=== PATIENT | female | born 1930 | race Caucasian/White ===

== ENCOUNTER 2016-10-04 13:16 | Observation (INO) | payer MEDICARE ==
[~2016-10-04] VITALS: Ht 162.6 cm; Wt 37.0 kg
--- NOTE | ~2016-10-04 | CON ---
PATIENT'S NAME: ADA VIZCARRA [facility] AGE: 86 Y [address] ROOM: [place] [address] LOCATION: GICU ADMIT DATE: 10/04/2016 Consultation DISCHARGE DATE: FAMILY PHYSICIAN: Elan Cunningham MD ATTENDING PHYSICIAN: Mars BEASLEY This is Consult for Dr. Pearce. HISTORY OF PRESENT ILLNESS: This pleasant 86-year-old lady is referred for rehab evaluation, admitted on 10/04/2016 with symptoms of potential of possible TIA. She was noticed to have weakness, and she complained of weakness throughout. EMS noticed while transferring her with some left facial droop that reportedly resolved while she was in the emergency room. Initial CT scan showed to be grossly within normal limits, unremarkable. MRI repeat on 10/04/2016 grossly is within normal limits. She stated that while she was in the emergency room, she still felt a little bit of weakness but that has resolved too. 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 She did well and went home. She has history of hypertension fluctuating with high systolic blood pressure at times. SOCIAL HISTORY: Known to be a regular smoker. She smokes about 3/4 to 1 pack a day, and she drinks fairly regularly mildly, however. PAST SURGICAL HISTORY: She did have history of hysterectomy and breast biopsy. PHYSICAL EXAMINATION: GENERAL: She is alert now, oriented x3. VITAL SIGNS: Blood pressure 145/66, temperature 97.4, pulse 56, respirations 16. She is 5 feet 4 inches and weighs 56.3 kg. NEUROLOGIC: Cranial nerves 2 through 12 are within normal limits. Tongue is moving symmetrical with soft palate. Voice is clear and not wet. No visual cut and/or neglect. Denied any headaches. No nausea. No vomiting. Denied any shortness of breath. PATIENT'S NAME: ADA VIZCARRA [facility] AGE: 86 Y [address] ROOM: [id number] [place] [id number] LOCATION: GICU ADMIT DATE: 10/04/2016 Consultation DISCHARGE DATE: FAMILY PHYSICIAN: Elan Cunningham MD ATTENDING PHYSICIAN: Mars BEASLEY MEDICATIONS: She is on the following medications: 1. Protonix. 2. Aspirin. 3. Nicotine. 4. Namenda. 5. Catapres. 6. Apresoline. 7. Artificial tear. 8. NaCl 0.9%. 9. Tylenol. 10. Plavix. 11. Lipitor. 12. Protonix. ASSESSMENT AND PLAN: Her strength throughout is now about 4- to 4/5 with normal breaths where she is usually as per her statement. She has okay control over her bowel and bladder. I feel that she has done well. If she continues to do so, I feel that she can follow with her family physician. She will continue on PT, OT, which has been already initiated. I would advise that she should not drive until she is re-evaluated. I will follow alongside with you while she is here. Thank you for this referral. All the above was explained to her and her in detail and their questions were answered appropriately. They verbalized understanding and in agreement. ELAN ABEBE MD WMAurora/modl /[id number] d: 10/05/162123 t: 10/06/16 07, CONSULTATION REPORT
--- NOTE | ~2016-10-04 | ER ---
PATIENT'S NAME: ADA VIZCARRA [facility] AGE: 86 Y [address] ROOM: [place] [address] LOCATION: [facility] ADMIT DATE: 10/04/2016 ER/Outpatient Report DISCHARGE DATE: FAMILY PHYSICIAN: Elan Cunningham MD ATTENDING PHYSICIAN: Mars BEASLEY Time of Arrival: 1320 hours. Time of Exam: 1320 hours. CHIEF COMPLAINT: Aphasia. HISTORY OF PRESENT ILLNESS: The patient arrived per [facility] ambulance, who had met up with the [facility]. At approximately 12 or 12:30 today, the patient had been working in the kitchen, she came out of the kitchen and was trying to talk to her and her speech was garbled and he was unable to understand what she was saying. She has had problems like this before. warehouse technician felt as though she had some drooping of the left side of her face. Upon arrival to the ER, the patient is awake and alert and oriented x4, able to state her name, her birthday, and knows date and location. She denies having any chest pain. Denies feeling any shortness of breath. States she has just some generalized weakness feeling, but otherwise does not really remember a lot about what happened prior to the ambulance picking her up. ALLERGIES: PENICILLIN. CURRENT MEDICATIONS: On her chart and reviewed by me. PAST MEDICAL HISTORY: COPD, CVA, TIA, mild dementia, osteoporosis. In May 2015, she did have a fall that caused a subdural hematoma and subarachnoid hemorrhage. PAST SURGERIES: Hysterectomy, breast lumpectomy, and eye surgery. SOCIAL HISTORY: She smokes 1 pack per day and has for quite a few years. She does drink alcohol on a nightly basis. Denies use of drugs. REVIEW OF SYSTEMS: Negative other than those mentioned in the HPI. PATIENT'S NAME: ADA VIZCARRA [facility] AGE: 86 Y [address] ROOM: [place] [address] LOCATION: [facility] ADMIT DATE: 10/04/2016 ER/Outpatient Report DISCHARGE DATE: FAMILY PHYSICIAN: Elan Cunningham MD ATTENDING PHYSICIAN: Mars BEASLEY PHYSICAL EXAMINATION: VITAL SIGNS: She weighed 35 kg. Blood pressure is 174/74, pulse of 52, respirations 20, temperature of 97 tympanic, and O2 saturation was 99% on room air. GENERAL: She is awake, alert, and oriented x4. SKIN: [place], warm, and dry. RESPIRATIONS: Even and nonlabored. HEENT: Pupils are equal and reactive to light. Extraocular movement is intact. Negative nystagmus. Oropharynx is clear. Tongue protrudes out equally. No drooping of her face is noted with smiling. NECK: Supple. No lymphadenopathy. LUNGS: Lung sounds are clear throughout. HEART: Regular rate and rhythm. ABDOMEN: Soft and nondistended. Bowel sounds are present. She moves all extremities equally. She has good sensation to all of her extremities. Strong peripheral pulses. No peripheral edema noted. EMERGENCY ROOM COURSE: EKG was completed, it shows sinus manuel and sinus rhythm, it is unchanged from her previous EKGs. CBC is within normal limits. Chem panel is within normal limits. Lactate was 1.2. Procalcitonin was negative. Troponin is negative. CT of the head was completed. Radiologist states that it shows old infarct and atrophy, but no acute abnormalities. The patient continues to deny having any pain or discomfort. She does report that she was seen last Sunday at [facility] ER for some vision problems and hypertension, states those symptoms did improve. I did call and talk to the hospitalist regarding the patient. He did come and evaluate the patient. IMPRESSION: 1. Transient ischemic attack. 2. History of aphasia. PLAN: The patient will be placed in observation on Neuro Trauma Unit for care of the hospitalist. She and her family verbalized understanding. DION SIMON APRN FOR DO [place]/chely /[id number] d: 10/04/162151 t: 10/13/16 1120, OUTPATIENT REPORT
--- NOTE | ~2016-10-04 | CON ---
PATIENT'S NAME: ADA VIZCARRA [facility] AGE: 86 Y [address] ROOM: [place] [address] LOCATION: GICU ADMIT DATE: 10/04/2016 Consultation DISCHARGE DATE: FAMILY PHYSICIAN: Elan Cunningham MD ATTENDING PHYSICIAN: Mars BEASLEY DATE OF CONSULTATION: 10/05/2016 TIME OF SERVICE: 6:15 p.m. CHIEF COMPLAINT: CVA. HISTORY OF PRESENT ILLNESS: This is an 86-year-old delightful female with a past medical history of hypertension, history of CVA, and history of subdural and subarachnoid hemorrhages secondary to a fall. She presents today with TIA-like symptoms. The symptoms began around noon today. She was having difficulty speaking and finding words. Her thought she had a left facial droop. He also felt the patient was weak throughout. EMS was called for CVA evaluation. En route, the EMS personnel also noted left facial droop. Upon arrival to the emergency department, the patient's symptoms resolved. Initial CT head was unremarkable. The patient was not a tPA candidate because her NIH stroke scale at that time was low. She denied any chest pain, shortness of breath, abdominal pain, nausea, vomiting, fever, chills, or vision change with this episode. She did not have a headache. Of note, the patient was seen in the [facility] on Sunday for elevated blood pressure and was started on clonidine. PAST MEDICAL HISTORY: 1. History of CVA. 2. Multiple TIAs. 3. Subarachnoid hemorrhage and small subdural hematoma, secondary to a fall last year. 4. Hypertension. 5. Mild dementia. 6. Tobacco abuse. PAST SURGICAL HISTORY: Hysterectomy and breast biopsy. FAMILY HISTORY: Her father had a history of coronary artery disease and her mother had a stroke. Her identical twin sister does have Parkinson disease. PATIENT'S NAME: ADA VIZCARRA [facility] AGE: 86 Y [address] ROOM: [place] [address] LOCATION: GICU ADMIT DATE: 10/04/2016 Consultation DISCHARGE DATE: FAMILY PHYSICIAN: Elan Cunningham MD ATTENDING PHYSICIAN: Mars BEASLEY SOCIAL HISTORY: The patient lives with her . They have been together for 7 years. She has a 36-year pack-a-year smoking history and currently smokes. She also has 1 beer a day and denies any history of withdrawal or dependence. MEDICATIONS: Her medications are on the chart and were reviewed by me. Of note, she is on Plavix 75 mg. REVIEW OF SYSTEMS: All systems have been reviewed and are negative, except for what is mentioned in the HPI. PHYSICAL EXAMINATION: VITAL SIGNS: She is afebrile, her blood pressure is 142/64, heart rate of 54, respiratory rate of 16, and saturating 96% on room air. GENERAL APPEARANCE: The patient is cachectic. She is in no acute distress. HEENT: Normocephalic and atraumatic. Eyes: Extraocular muscles are intact. HEART: Regular rate and rhythm. No murmurs, rubs, or gallops. LUNGS: Clear to auscultation bilaterally. NEUROLOGIC: She is alert and oriented x2. At this time, the patient's stroke scale is zero. Her pupils are equal and reactive to light. Strength is probably 4+ to upper and lower extremities. The patient was not observed to walk, however, she states she has no gait abnormalities. She is conversive and pleasant. She seems to know current events. There is a mention of dementia in the chart; however, I am unable to elicit any of these symptoms. DIAGNOSTICS: The patient has had an MRI of the brain. It does show a very small left frontal periventricular white matter acute ischemic infarct. There are chronic bilateral basal ganglia and thalamic lacunar infarcts. The brain does have advanced atrophy with compensatory ventriculomegaly. There are advanced white matter changes more than typical for age, probably from chronic small vessel ischemia. She does have chronic microhemorrhages in the left cerebellum and bilateral thalamic and right frontal subcortex. MRI of the brain is done as well which shows no focal vessel cut-off, aneurysm, stenosis, or vascular malformation. Pending studies include a carotid study of her neck. An echocardiogram was completed, which does show a left ventricular ejection fraction of 70%-75%. There is some mild sclerosis around the aortic valve. The atrium of the right and left are both within normal limits. Her LDL is 82. ASSESSMENT AND PLAN: 1. Cerebrovascular accident. This stroke looks very much to be caused by her PATIENT'S NAME: CARMITAADA [facility] AGE: 86 Y [address] ROOM: [id number] [place], [place] [address] LOCATION: [facility] ADMIT DATE: 10/04/2016 Consultation DISCHARGE DATE: FAMILY PHYSICIAN: Elan Cunningham MD ATTENDING PHYSICIAN: Mars BEASLEY history of smoking. We did discuss quitting smoking. She would like to discuss this with Dr. Payne, her new physician. She has tried some things in the past. I did explain to her that this certainly is not good for someone with the stroke and increases her risk of a secondary stroke. She is on Plavix normally. We will add aspirin to that regime and have dual- platelet therapy for 21 days and then return to the Plavix. Her LDL is being treated with statin therapy. Luckily, the patient's NIH stroke scale is zero at this time. 2. Ventriculomegaly. The patient definitely demonstrates ventriculomegaly on her MRI. It is difficult to know if this is in proportion to her atrophy of her brain. She denies any gait disturbances at this time, however, she may want to consider followup in an outpatient setting to evaluate for normal-pressure hydrocephalus. It is difficult to evaluate this in the inpatient setting. 3. Physical deconditioning. The patient has been ordered on a high-calorie diet with supplementation. We would like to thank you for the opportunity to take part in this patient's care. If you have any questions, please let myself or Dr. Dewey know. KRYSTLE CHU APRN FOR MEG DEWEY MD PP/modl /[id number] d: 10/05/162256 t: 10/24/16 163, CONSULTATION REPORT
--- NOTE | ~2016-10-04 | ENPV ---
Carotid Duplex Study Demographics Patient Name ADA VIZCARRA Date of Study 10/05/2016 Patient Number [id number] Gender Female Date of 1930 Age 86 Visit Number [id number] Height 64 Accession Number [id number] Weight 78 Referring Emili March MD Physician EMILI CREWS Physician Physician Ordering Physician Emili Crews Team Facilitator Irish Moss Gatherer Dipti Nielsen, RT,RVT,RDCS Conclusions Procedure Type of Study: Cerebral:Carotid, Carotid Doppler Bilateral. Indications for Study:TIA. Appropriate Use Criteria:9 Patient Status:Routine. Study Location:Inpatient Portable. Technical Quality:Adequate visualization. Velocities are measured in cm/s ; Diameters are measured in cm Carotid Right Measurements Carotid Left Measurements + +--------+--------+ + + + +--------+- -------+ + + !Location !PSV !EDV !Angle !%Stenosis ! !Location !PSV !E DV !Angle !%Stenosis ! + +--------+--------+ + + + +--------+- -------+ + + !Prox CCA !31 !6 !40 !1-39% ! !Prox CCA !63 !6 !60 !1-39% ! + +--------+--------+ + + + +--------+- -------+ + + !Mid CCA !37 !7 !52 ! ! !Dist CCA !52 !8 !60 !1-39% ! + +--------+--------+ + + + +--------+- -------+ + + !Dist CCA !28 !5 !46 !1-39% ! !Prox ICA !44 !8 !58 !1-39% ! + +--------+--------+ + + + +--------+- -------+ + + !Prox ICA !90 !21 !60 !1-39% ! !Mid ICA !35 !8 !40 !1-39% ! + +--------+--------+ + + + +--------+- -------+ + + !Mid ICA !104 !15 !60 !1-39% ! !Dist ICA !49 !1 0 !20 !1-39% ! + +--------+--------+ + + + +--------+- -------+ + + !Dist ICA !106 !10 !52 !1-39% ! !Prox ECA !71 !6 2 !46 ! ! + +--------+--------+ + + + +--------+- -------+ + + !Prox ECA !157 ! !52 ! ! !Vertebral !65 ! !52 ! ! + +--------+--------+ + + + +--------+- -------+ + + !Vertebral !29 ! !40 ! ! + +--------+--------+ + + - There is antegrade vertebral flow noted on the right side. - There is antegrade verte bral flow noted on the left side. - Add'l Measurements:Subclavian PRV 83 cm/sICAPSV/CCAPSV - Add'l Measurements:Subcl jere PRV 61 cm/sICAPSV/CCAPSV 3.44.ICAEDV/CCAEDV 3.59. 0.77.ICAEDV/CCAEDV 1.56. Impressions Right Impression Right vertebral antegrade flow. Mild to Moderate calcified plaque at bifurcation and proximal to mid ICA. No significant elevation of velocities, however, velocity was low in right CCA. Left Impression Left vertebral antegrade flow. Mild to moderate calcified plaque in proximal ICA. No significant elevation in velocities. Signature dtt: BRI CARRANZA dtd: 10/05/16 1115 Physician Self Edit
--- NOTE | ~2016-10-04 | ECHO ---
Transthoracic Echocardiography Report (TTE) Demographics Patient Name ADA VIZCARRA Date of Study 10/05/2016 Patient Number [id number] Visit Number [id number] Date of 1930 Room Number [id number] Gender Female Number Age 86 year(s) Referring Emili Crews Medical Billing Coder Dipti Nielsen, Physician EMILI CREWS RT,RVT,RDCS Physician Interpreting Velasquez Dawson A Saw Superintendent Physician MD Supervising Ordering Emili Crews MD/MLP Physician Nurse Stress Client Relationship Manager Conclusions Contractility Score Summary Normal Left Ventricular contractility was noted. Summary The estimated left ventricular ejection fraction is 70-75%. The aortic valve is mildly sclerotic. Mild tricuspid regurgitation by color Doppler. Procedure Type of Study TTE procedure:2D Echocardiogram, M-Mode, Doppler , Color Doppler. Procedure Date Date: 10/05/2016 Start: 10:56 AM Study Location: Inpatient Portable Technical Quality: Limited visualization due to body habitus. Indications:TIA. Appropriate Use Criteria: 9 Patient Status: Routine HR: 50 bpm BP: 115/55 mmHg M-Mode/2D Measurements LV Diastolic Dimension: 3.63 cm LV Systolic Dimension: 1.79 cm LV Septum Diastolic: 0.67 cm LV PW Diastolic: 0.81 cm AO Root Dimension: 2.9 cm Cardiac Output: 2.69 l/min AV Cusp Separation: 1.2 cm RV Diastolic Dimension: 1.9 cm EF Estimated: 70 % LVOT: 1.9 cm MV EPSS: 0.2 cm LVOT VTI: 19 cm LV Stroke volume: 53.84 ml Doppler Measurements AV Peak Velocity: 0.84 m/s MV Peak E-Wave: 0.72 m/s AV Peak Gradient: 2.79 mmHg MV Peak A-Wave: 0.81 m/s AV Mean Gradient: 2 mmHg MV E/A Ratio: 0.89 LVOT Peak Velocity: 0.66 m/s MV P1/2t: 65 msec TR Gradient:17.98 mmHg PV Peak Velocity: 0.92 m/s Estimated RAP:10 mmHg PV Peak Gradient: 3.36 mmHg Estimated RVSP: 28 mmHg Estimated PASP: 27.98 mmHg Findings Left Ventricle Normal left ventricle size and function. Right Ventricle Normal right ventricle structure and function. Left Atrium Normal left atrial size. Right Atrium Normal right atrial size. Mitral Valve Normal mitral valve structure and function. Aortic Valve The aortic valve is moderately sclerotic. Tricuspid Valve Mild tricuspid regurgitation by color Doppler. Normal estimated pulmonary artery pressure. Pulmonic Valve Normal pulmonic valve structure and function. Pericardial Effusion No evidence of pericardial effusion. Miscellaneous Visualized portions of the aortic root and ascending aorta appear normal in size. Abdominal aorta appears atherosclerotic. Pleural Effusion No evidence of pleural effusion. Contractility Score LV regional wall motion:(0-Non visualized 1-Normal 2-Hypokinesis 3-Akinesis 4-Dyskinesis 5-Aneurysm) Signature dtt: Keyla Eng dtd: 10/05/16 1056 Physician Self Edit
--- NOTE | ~2016-10-04 | HP ---
PATIENT'S NAME: ADA VIZCARRA [facility] AGE: 86 Y [address] ROOM: [place] [address] LOCATION: GICU ADMIT DATE: 10/04/2016 History & Physical DISCHARGE DATE: FAMILY PHYSICIAN: Elan Cunningham MD ATTENDING PHYSICIAN: Mars BEASLEY DATE OF SERVICE: CHIEF COMPLAINT: TIA. HISTORY OF PRESENT ILLNESS: The patient is an 86-year-old female with past medical history of hypertension, history of CVA, and history of subdural and subarachnoid hemorrhage, secondary to fall, who presents here with TIA-like symptoms. According to , around noon today, the patient was noted to have difficulty speaking and word finding. Also, noted to have left-sided facial droop. Also, noted that the patient was weak throughout. EMS was called in for CVA evaluation. Also, en route the EMS personnel noted left facial droop. Upon arrival to the emergency department, the patient's symptoms resolved. Initial CT head was unremarkable. The patient denies any chest pain, shortness of breath, abdominal pain, nausea, vomiting, fever, chills, vision change, and headache. Of note, the patient was seen in [facility] on Sunday for elevated blood pressure and then was started on clonidine. PAST MEDICAL HISTORY: 1. History of CVA. 2. Multiple TIAs. 3. Subarachnoid hemorrhage and small subdural hematoma, secondary to fall which happened last year. 4. Hypertension. 5. Mild dementia. 6. Tobacco abuse. PAST SURGICAL HISTORY: Hysterectomy and breast biopsy. FAMILY HISTORY: Dad has a history of coronary artery disease, mother had stroke, and her identical sister has history of Parkinson disease. SOCIAL HISTORY: The patient lives with her . They have been together for 7 years. She has 36 years pack-a-year smoking history and currently smokes. She also reports having 1 beer a day and denies any history of withdrawal. PATIENT'S NAME: ADA VIZCARRA [facility] AGE: 86 Y [address] [id number] [address] LOCATION: GICU ADMIT DATE: 10/04/2016 History & Physical DISCHARGE DATE: FAMILY PHYSICIAN: Elan Cunningham MD ATTENDING PHYSICIAN: Mars BEASLEY MEDICATIONS: Currently being reconciled. REVIEW OF SYSTEMS: All systems have been reviewed and are negative except for what I mentioned in the HPI. PHYSICAL EXAMINATION: VITAL SIGNS: Afebrile, blood pressure 139/61, heart rate of 50, respiratory rate of 16, and saturating 96% on room air. GENERAL APPEARANCE: The patient is cachectic, in no acute distress. HEAD: Normocephalic, atraumatic. EYES: Extraocular muscles intact. No eye discharge. NOSE: No nasal discharge. EARS: No ear discharge. ORAL CAVITY: Moist oral cavity. HEART: Regular rate and rhythm. No murmurs, rubs, or gallops. LUNGS: Clear to auscultation bilaterally. ABDOMEN: Soft, nontender, and nondistended. Bowel sounds present. SKIN: Warm to touch. GUN STOCK MAKER: Alert and oriented x3. Motor and sensory grossly intact. Peripheral vision intact. DIAGNOSTIC STUDIES: EKG shows sinus bradycardia with rate of 50 with nonspecific T-wave change on aVL. Lactate is 1.2, blood glucose of 99, troponin x1 negative. White blood cell count of 10.5, hemoglobin 14, hematocrit of 43.6, platelet of 247. Glucose of 98, BUN of 11, creatinine of 0.7, sodium 143, potassium 4.2, chloride 108, CO2 of 29. INR of 1. ASSESSMENT AND PLAN: 1. Transient ischemic attack: ABCD2 score of 4. We will admit the patient for observation. The patient's symptoms resolved upon arrival. The patient's initial symptom was weakness, left-sided facial droop, and word- finding difficulty. The vital signs are stable. We will acquire MRI of the brain to rule out some residual stroke. Until then, we will not treat high blood pressure until systolic blood pressure is greater than 220 and diastolic blood pressure greater than 120. We will hold clonidine. We will also get an echocardiogram and carotid Doppler and MRI of the brain without contrast. Physical Therapy. We will consult Neurology and Occupational Therapy. 2. History of hypertension: Holding clonidine for now. PATIENT'S NAME: ADA VIZCARRA [facility] AGE: 86 Y [address] ROOM: [place] [address] LOCATION: [facility] ADMIT DATE: 10/04/2016 History & Physical DISCHARGE DATE: FAMILY PHYSICIAN: Elan Cunningham MD ATTENDING PHYSICIAN: Mars BEASLEY 3. Severe protein-calorie malnutrition: Dietitian consult. 4. Tobacco abuse: We discussed about cessation. We will offer nicotine patch. 5. History of mild dementia, ongoing. Greater than 40 minutes was spent on patient care. Greater than 50% of the time was spent on direct patient care. Code status discussed with the patient and family. Code status on admission is full code. MD EDMOND SHELDON/modl /[id number] D: [id number] T: [id number] HISTORY & PHYSICAL
--- NOTE | ~2016-10-04 | DS ---
PATIENT'S NAME: ADA DELATORRE [facility] AGE: 86 Y [address] 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 SECONDARY DIAGNOSES: 1. Ventriculomegaly. 2. Severe protein-calorie malnutrition. 3. Cachexia and a prealbumin of 16. 4. Hypertension. 5. Tobacco addiction, counseling has been completed. 6. Dementia, mild. CONSULTATIONS: 1. Neurology, 10/05/2016, with Dr. Dewey and Lillian Nava. 2. Acute Rehab, Dr. Knight, 10/05/2016. PROCEDURES: Echocardiogram. BRIEF SUMMARY OF FINDINGS: The estimated left ventricular ejection fraction is 70% to 75% and there is mild aortic valve sclerosis. Carotid ultrasound are ordered and report is not available to me at this time of dictation. BRIEF HISTORY: Ms. Delatorre is an 86-year-old female with a known past medical history of TIAs. She recently had hypertension evaluated at the [facility] and was started on clonidine and in 2016 she had subdural and subarachnoid hemorrhages, status post fall. She presented with difficulty with word finding and speaking and was noted to have left-sided facial droop. She was brought to the hospital by EMS. She was admitted to the hospital for further evaluation and management. She has had no progression of her symptoms. She had been seen Physical Therapy, Speech Therapy, and Occupational Therapy. She did have some speech deficits and weakness and Outpatient Physical Therapy, Speech, and Occupational Therapy and RN visits to the home are recommended. Dr. Knight thinks that outpatient rehab will be adequate and no followup with him is recommended. PATIENT'S NAME: ADA DELATORRE [facility] AGE: 86 Y [address] ROOM: [id number] [place], [place] [id number] LOCATION: GICU ADMIT DATE: 10/04/2016 Discharge Summary DISCHARGE DATE: 10/06/2016 FAMILY PHYSICIAN: Elan Cunningham MD ATTENDING PHYSICIAN: Mars Mock She was seen by Neurology and she can follow up with them in 6 weeks for the possibility of normal-pressure hydrocephalus because of the ventriculomegaly. She was treated with clonidine for hypertension at [facility]. This may not be the best choice for an antihypertensive and this should be reevaluated by her PCP. We are recommending she see a PCP within 1 week of discharge from this hospitalization today. She does agree with tobacco cessation and is on a NicoDerm patch, which she reports she will continue. She has mild dementia on Namenda and she is pleasant, awake, alert, and oriented today. She does have very poor appetite and is cachectic. Her prealbumin is moderately down at 16, but she is just severely malnourished and admits to poor appetite and encouraged her to continue her Boost at home. INSTRUCTIONS AT DISCHARGE: Several small meals a day, Boost t.i.d., lean protein with every meal. Activity as tolerated. Neurology follow up in 6 weeks. PCP follow up with Dr. Elan Cunningham in less than 7 days from discharge. MEDICATIONS AT THE TIME OF DISCHARGE: 1. Aspirin 81 mg p.o. daily for 21 days then stop. 2. Lipitor 40 mg p.o. q.h.s. 3. Clonidine 0.1 mg p.o. b.i.d. 4. Plavix 75 mg daily to continue indefinitely. 5. Namenda 5 mg p.o. daily. 6. NicoDerm patch 7 mg transdermal daily. 7. Protonix 40 mg p.o. q.a.m. 8. She gets Reclast infusions annually. 9. Eyedrops p.r.n. CONDITION AT DISCHARGE: Good. The patient and her are in agreement with discharge to home. Time spent was less than 30 minutes. GARRET DYE MD PATIENT'S NAME: ADA DELATORRE [facility] AGE: 86 Y [address] ROOM: [place] [address] LOCATION: [facility] ADMIT DATE: 10/04/2016 Discharge Summary DISCHARGE DATE: 10/06/2016 FAMILY PHYSICIAN: Elan Cunningham MD ATTENDING PHYSICIAN: Mars Mock LM/modl /[id number] CC: MD Elan Yoder MD d: 10/07/16 0157 t: 10/11/16 1407, DISCHARGE SUMMARY
[~2016-10-04 13:16] MED LIST changes: -ASPIRIN (CHILDR81 MG PO; -CATAPRES0.1 MG PO; -LIPITOR40 MG PO; -NAMENDA5 MG PO; -NICODERM / HABIT7 MG TRANS; -PROTONIX40 MG PO; -REFRESH TEARS15 ML OPHTH
[2016-10-04 14:07] LABS: HEMATOCRIT 43.6 % (30.0-46.0); MCH 29.1 pg (27.0-34.0); MCHC 32.1 gm/dL (32.0-36.5); MCV 90.6 fl (83.0-98.0); RBC 4.81 M/uL (3.00-5.00); WBC 10.5 K/uL (4.0-11.0)
[2016-10-04 14:08] LABS: BASOPHIL # 0.1 K/uL (0.0-0.2); BASOPHIL % 1.2 %; EOSINOPHIL # 0.1 K/uL (0.0-0.5); IMMATURE GRANULOCYTE % 0.3 %; LYMPHOCYTE # 2.2 K/uL (0.8-4.0); LYMPHOCYTE % 21.1 %; MONOCYTE # 0.6 K/uL (0.0-1.0); MONOCYTE % 5.6 %; MPV 11.9 fl (9.4-12.4); NEUTROPHIL # (ANC) 7.4 K/uL (1.8-7.8); NEUTROPHIL % 70.8 %; NRBC % 0 /100WBC (0-0.00); PLATELET COUNT 247 K/uL (150-450)
[2016-10-04 14:16] LABS: INR - (THERAPEUTIC) 1.02 (0.92-1.07); PROTIME 10.7 SECONDS (9.8-11.4); PTT 27 SECONDS (25-32)
[2016-10-04 14:23] LABS: ALBUMIN 3.3 gm/dL (3.5-5.0); ANION GAP 10.2 (10.0-19.0); CREATININE 0.7 mg/dL (0.5-1.1); POTASSIUM 4.2 mMol/L (3.7-5.1); TOTAL BILIRUBIN 0.3 mg/dL (0.0-1.5); TOTAL PROTEIN 6.7 g/dL (6.0-8.4)
[2016-10-04] MEDS ORDERED: CATAPRES0.1 MG PO (16:39)
[2016-10-04] MEDS ORDERED: NAMENDA5 MG PO (16:39)
[2016-10-04] MEDS ORDERED: REFRESH TEARS15 ML OPHTH (16:40)
[2016-10-06] MEDS ORDERED: ASPIRIN (CHILDR81 MG PO (12:04)
[2016-10-06] MEDS ORDERED: LIPITOR40 MG PO (12:05)
[2016-10-06] MEDS ORDERED: NICODERM / HABIT7 MG TRANS (12:06)
[2016-10-06] MEDS ORDERED: PROTONIX40 MG PO (12:07)
== END 2016-10-06 12:30 | disposition home health service (06) ==
LOC: GMED 13:16 → GICU 14:59
PROVIDERS: Nurse Practitioner Family; ADMIT Internal Medicine
DX: I63.9 Cerebral infarction, unspecified (principal); G93.89 Other specified disorders of brain; I10 Essential (primary) hypertension; F03.90 Unspecified dementia, unspecified severity, without behavioral disturbance, psychotic disturbance, mood disturbance, and anxiety; I36.1 Nonrheumatic tricuspid (valve) insufficiency; I35.8 Other nonrheumatic aortic valve disorders; E43 Unspecified severe protein-calorie malnutrition; F17.210 Nicotine dependence, cigarettes, uncomplicated; Z90.710 Acquired absence of both cervix and uterus; Z87.820 Personal history of traumatic brain injury; Z79.82 Long term (current) use of aspirin; Z79.899 Other long term (current) drug therapy; Z79.02 Long term (current) use of antithrombotics/antiplatelets; Z98.890 Other specified postprocedural states
CPT/HCPCS: A9270; C9113; G0378; G8978; G8979; G8980; G8981; G8982; G8983; G8996; G8997; G8998

== ENCOUNTER → 2016-10-04 | Outpatient (CLI) | payer MEDICARE ==
[~2016-10-04] MED LIST: ASPIRIN (CHILDR81 MG PO; ASPIRIN LO-DOSE81 MG PO; CATAPRES0.1 MG PO; CITRACAL+D(315M1 TAB PO; ELAVIL25 MG PO; LIPITOR40 MG PO; LUMIGAN 0.01%2.5 ML OPHTH; NAMENDA5 MG PO; NICODERM / HABIT7 MG TRANS; PLAVIX75 MG PO; PRESERVISION A1 EAC1 PO; PROTONIX40 MG PO; PROVENTIL OR V6.7 GM INH; RECLAST5 MG/100 M IV; REFRESH TEARS15 ML OPHTH; TYLENOL325 MG PO
== END | disposition disaster alternative care site (69) ==
LOC: GAMB 12:45
DX: I63.9 Cerebral infarction, unspecified (principal); I10 Essential (primary) hypertension; H53.8 Other visual disturbances; G81.90 Hemiplegia, unspecified affecting unspecified side; R29.810 Facial weakness; R00.1 Bradycardia, unspecified; R47.01 Aphasia; Z79.899 Other long term (current) drug therapy; Z88.0 Allergy status to penicillin